=== PATIENT | female | born 1965 | race Hispanic/Latino ===

== ENCOUNTER 2017-03-13 19:10 | Emergency (ER) | payer MEDICAID ==
[2017-03-13 19:40] VITALS: TEMP 97.6; O2SAT 100
--- NOTE | 2017-03-13 19:40 | ED PDOC ---
Arrival/HPI - General Time Seen by Provider: 03/13/17 19:39 Historian: Patient - History of Present Illness Narrative History of Present Illness (Text): 03/13/17 19:40 This 51 yo female presents to the ED complaining of left foot pain and swelling x one day. Patient stated that after bumping into a dresser, it fell on her left foot. Patient noted a left foot swollen. She has been applying an ice pack and elevation. She denies other complaints. Denies calf pain, knee pain, hip pain, or back pain. Time/Duration: Other (1 day) Quality: Aching Context: Home Past Medical History - Provider Review Nursing Documentation Reviewed: Yes - Infectious Disease Hx of Infectious Diseases: None - Cardiac Hx Hypertension: Yes - Musculoskeletal/Rheumatological Hx Arthritis: Yes - Psychiatric Hx Substance Use: No - Surgical History Hx Appendectomy: Yes Family/Social History - Physician Review Nursing Documentation Reviewed: Yes Family/Social History: Other ([place]) Smoking Status: Never Smoked Hx Alcohol Use: No Hx Substance Use: No Allergies/Home Meds Allergies/Adverse Reactions: Allergies No Known Allergies Allergy (Verified 03/13/17 19:40) Review of Systems - Review of Systems Constitutional: Normal. absent: Fatigue, Weight Change, Fevers Eyes: Normal ENT: Normal Respiratory: Normal Cardiovascular: Normal Gastrointestinal: Normal Genitourinary Female: Normal Musculoskeletal: Other (Left foot pain) Skin: Normal Neurological: Normal Endocrine: Normal Hemo/Lymphatic: Normal Psychiatric: Normal Physical Exam Vital Signs Temp Pulse Resp BP Pulse Ox 03/13/17 19:37 97.6 F 80 16 133/56 L 100 Temperature: Afebrile Blood Pressure: Normal Pulse: Regular Respiratory Rate: Normal Appearance: Positive for: Well-Appearing, Non-Toxic, Comfortable Pain Distress: None Mental Status: Positive for: Alert and Oriented X 3 - Systems Exam Head: Present: Atraumatic, Normocephalic Pupils: Present: PERRL Extroacular Muscles: Present: EOMI Conjunctiva: Present: Normal Mouth: Present: Moist Mucous Membranes Upper Extremity: Present: Normal Inspection, Normal ROM, NORMAL PULSES Lower Extremity: Present: NORMAL PULSES, Tenderness, Swelling, Neurovascularly Intact, Capillary Refill < 2 s, Other ((+) mild tenderness over distal 3rd metatarsal area, with mild soft tissue swelling. Gonzalez test was negative. No posterior ankle pain. No erythema, or ecchymosis. No cellulitis, or deformity). No: Edema, CALF TENDERNESS, Erythema, Temperature Abnormalties Neurological: Present: GCS=15, CN II-XII Intact, Speech Normal, Motor Func Grossly Intact, Normal Sensory Function, Normal Cerebellar Funct, Gait Normal, Memory Normal Skin: Present: Warm, Dry, Normal Color. No: Rashes Psychiatric: Present: Alert, Oriented x 3, Normal Insight, Normal Concentration Medical Decision Making ED Course and Treatment: 03/13/17 20:27 Re-evaluation. Patient feels better. Discussed results and plan with patient who expresses understanding. All questions answered and there is agreement with the plan to discharge home with instructions. Patient stable for discharge. Return if symptoms persist or worsen Patient was recommended to use cane, katherine bandage, and post op shoe, and RICE for at least 5 days, and to return to emergency if pain worsen. She also understands to remove katherine bandage at bedtime. Re-evaluation Time: 20:27 Reassessment Condition: Re-examined, Improved - RAD Interpretation Narrative RAD Interpretations (Text): 03/13/17 20:28 Foot x-rays: No Fx Radiology Orders: 03/13/17 19:47 FOOT LEFT 3 VIEWS ROUTINE [RAD] Stat - Medication Orders Current Medication Orders: Discontinued Medications Acetaminophen (Tylenol 325mg Tab) 650 mg PO STAT STA Stop: 03/13/17 19:47 Last Admin: 03/13/17 19:52 Dose: 650 mg MAR Pain/Vitals Document 03/13/17 19:52 JOL (Rec: 03/13/17 19:53 JOL [id number]) Pain Reassessment Is This A Pain ReAssessment? No Sleep Is patient sleeping during reassessment? No Presence of Pain Presence of Pain Yes Pain Scale Used Pain Scale Used Numeric Location Left, Right or Bilateral Left Pain Location Body Site Foot Intensity 6 Scale Used Numeric Disposition/Present on Arrival - Present on Arrival Any Indicators Present on Arrival: No History of DVT/PE: No History of Uncontrolled Diabetes: No Urinary Catheter: No History of Decub. Ulcer: No History Surgical Site Infection Following: None - Disposition Have Diagnosis and Disposition been Completed?: Yes Diagnosis: Foot contusion Disposition: HOME/ ROUTINE Disposition Time: 20:29 Patient Plan: Discharge Patient Problems: Current Active Problems Problem Status Onset Foot contusion Acute Condition: GOOD Discharge Instructions (ExitCare): Foot Contusion (ED) Additional Instructions: Call private doctor for follow up visit in 1-2 days. Keep foot elevated, ice, rest, katherine bandage, cane ortho shoe for at least 5 days. Remove katherine bandage at bedtime. Return to emergency if pain or symptoms worsen. Continue with home Meloxican medication, and take over the counter Tylenol for pain as needed. No gym or sport till clear by your doctor. Forms: WORK NOTE
[2017-03-14 05:22] VITALS: BP 135/65; PULSE 77; RESP 18
--- NOTE | 2017-03-14 09:57 | RAD ---
PROCEDURE: Left Foot Radiographs. HISTORY: pain s/p trauma COMPARISON: None. FINDINGS: BONES: Normal. No fracture. JOINTS: Normal. SOFT TISSUES: Normal. OTHER FINDINGS: None. IMPRESSION: Normal left foot radiographs.
== END 2017-03-13 21:07 | disposition home or self-care (01) ==
LOC: ED 19:10
DX: S90.32XA Contusion of left foot, initial encounter (principal); W22.8XXA Striking against or struck by other objects, initial encounter; Y93.89 Activity, other specified; Y92.89 Other specified places as the place of occurrence of the external cause

== ENCOUNTER 2018-01-05 12:18 | Emergency (ER) | payer MEDICAID ==
[2018-01-05 12:23] VITALS: BMI 31.8
[2018-01-05 12:31] VITALS: O2SAT 98
[2018-01-05 13:08] LABS: ALB/GLOB RATIO 1.3 (1.1-1.8); ALT/SGPT 34 U/L (7-56); AST/SGOT 26 U/L (14-36); BLOOD UREA NITROGEN 11 mg/dL (7-21); GFR AFRICAN-AMERICAN > 60; GFR NON-AFRICAN AMERICAN > 60
[2018-01-05 13:12] LABS: BASO # 0.07 K/mm3 (0.0-2.0); BASO % 1.1 % (0.0-3.0); EOS # 0.2 (0.0-0.7); EOS % 2.4 % (1.5-5.0); GRAN # 4.45 (1.4-6.5); GRAN % 67.2 % (50.0-68.0); HEMOGLOBIN 12.3 g/dL (12.0-16.0); LYMPH # 1.7 (1.2-3.4); LYMPH % 24.9 % (22.0-35.0); MEAN CELL VOLUME 87.6 fl (80.0-105.0); MEAN CORPUSCULAR HEMOGLOBIN 29.2 pg (25.0-35.0); MEAN CORPUSCULAR HGB CONC 33.3 g/dl (31.0-37.0); MEAN PLATELET VOLUME 10.1 fl (7.0-11.0); MONO # 0.3 (0.1-0.6); MONO % 4.4 % (1.0-6.0); RBC 4.21 10^6/uL (3.5-6.1); RED CELL DISTRIBUTION WIDTH 12.8 % (11.5-14.5); WHITE BLOOD COUNT 6.6 10^3/ul (4.5-11.0)
[2018-01-05 13:17] LABS: URINE BILIRUBIN NEGATIVE (NEGATIVE); URINE BLOOD NEGATIVE (NEGATIVE); URINE GLUCOSE (UA) NEGATIVE (NEGATIVE); URINE LEUKOCYTE ESTERASE NEGATIVE Leu/uL (NEGATIVE); URINE PROTEIN NEGATIVE mg/dL (<30 mg/dL); URINE UROBILINOGEN 0.2 E.U./dL (<1 E.U./dL)
[2018-01-05 13:19] LABS: B-TYPE NATRIURETIC PEPTIDE 113 pg/mL (0-450); TROPONIN I < 0.01 ng/mL
[2018-01-05 13:22] LABS: URINE APPEARANCE CLEAR (CLEAR); URINE COLOR YELLOW (YELLOW)
[2018-01-05 13:26] LABS: INR 0.95; PARTIAL THROMBOPLASTIN TIME 29.1 Seconds (25.1-36.5); PROTHROMBIN TIME 10.8 SECONDS (9.4-12.5)
--- NOTE | 2018-01-05 13:45 | ED PDOC ---
Arrival/HPI - General Chief Complaint: Chest Pain Time Seen by Provider: 01/05/18 12:23 Historian: Patient - History of Present Illness Narrative History of Present Illness (Text): 01/05/18 13:30 A 52 year old female, whose past medical history includes Hypertension and arthritis (takes Ibuprofen), presents to the emergency department complaining of central pleuritic chest pain located between breasts for 5 days. Patient reports she has a fmaily history of CAD, stating mother is 73 had recent open heart surgery, and her brother at age 53. She describes pain as "feels like someone punched my chest". She states she may have pulled a muscle after heavy lifting, or any that she may be experiencing indigestion after eating spices. Mentions feeling pain upon waking up or when walking up stairs. She notes also experiencing shortness of breath, pain when breathing, MEDINA, and some dizziness (athough patient states this may be due to Hypertension). Patient denies any leg swelling, nausea, vomiting, trauma/fall, abdominal pain, or any other complaints. Also, patient mentions eating well-cooked hamburger last night. PMD: Dr. Blake Time/Duration: < week (5 days) Symptom Onset: Sudden, Gradual Symptom Course: Unchanged Past Medical History - Provider Review Nursing Documentation Reviewed: Yes - Infectious Disease Hx of Infectious Diseases: None - Reproductive Menopause: Yes - Cardiac Hx Hypertension: Yes - Musculoskeletal/Rheumatological Hx Arthritis: Yes - Psychiatric Hx Substance Use: No - Surgical History Hx Appendectomy: Yes - Anesthesia Hx Anesthesia Reactions: No Hx Malignant Hyperthermia: No Family/Social History - Physician Review Nursing Documentation Reviewed: Yes Family/Social History: CAD/ME (Mother is 73 recent open heart surgery, and brother at age 53.) Smoking Status: Never Smoked Hx Alcohol Use: No Hx Substance Use: No Allergies/Home Meds Allergies/Adverse Reactions: Allergies No Known Allergies Allergy (Verified 03/13/17 19:40) Home Medications: Home Meds Medication Instructions Recorded Confirmed Lisinopril [Zestril] 20 mg PO DAILY 01/05/18 01/05/18 Review of Systems - Physician Review All systems were reviewed & negative as marked: Yes - Review of Systems Constitutional: absent: Other (no trauma/fall) Respiratory: SOB Cardiovascular: Chest Pain (central pleuritic chest pain located between breasts.), MEDINA Gastrointestinal: absent: Abdominal Pain, Nausea, Vomiting Musculoskeletal: absent: Other (no leg swelling.) Neurological: Dizziness (according to patient, dizziness may be caused by Hypertension.) Physical Exam Vital Signs Reviewed: Yes Vital Signs Temp Pulse Resp BP Pulse Ox 01/05/18 12:18 98.3 F 84 16 167/71 H 98 Temperature: Afebrile Blood Pressure: Normal Pulse: Regular Respiratory Rate: Normal Appearance: Positive for: Well-Appearing, Non-Toxic, Comfortable Pain Distress: None Mental Status: Positive for: Alert and Oriented X 3 - Systems Exam Head: Present: Atraumatic, Normocephalic Pupils: Present: PERRL Extroacular Muscles: Present: EOMI Conjunctiva: Present: Normal Mouth: Present: Moist Mucous Membranes Neck: Present: Normal Range of Motion Respiratory/Chest: Present: Clear to Auscultation, Good Air Exchange, Other ( reproducible pain to mid-sternal anterior region of chest wall.). No: Respiratory Distress, Accessory Muscle Use Cardiovascular: Present: Regular Rate and Rhythm, Normal S1, S2. No: Murmurs Abdomen: No: Tenderness, Distention, Peritoneal Signs Back: Present: Normal Inspection Upper Extremity: Present: Normal Inspection. No: Cyanosis, Edema Lower Extremity: Present: Normal Inspection. No: Edema Neurological: Present: GCS=15, CN II-XII Intact, Speech Normal Skin: Present: Warm, Dry, Normal Color. No: Rashes Psychiatric: Present: Alert, Oriented x 3, Normal Insight, Normal Concentration Medical Decision Making ED Course and Treatment: 01/05/18 13:35 Impression: 52 year old female with chest pain. Differential Diagnosis included but are not limited to: Musculoskeletal Plan: -- EKG -- Chest X-ray -- Toradol -- Nitro -- Labs -- Urinalysis -- Reassess and disposition Progress Notes: 01/05/2018 13:44 Chest X-ray IMPRESSION: No active disease. Dictator: Alex Blake MD 01/05/18 14:57 Labs reviewed with negative troponin and elevated D-dimer. Discussed results with patient who after shared decision making decides not to pursue CTPE at this time. - Lab Interpretations Lab Results: 01/05/18 12:45 01/05/18 12:45 Lab Results 01/05/18 13:00: Urine Color Yellow, Urine Appearance Clear, Urine pH 6.0, Ur Specific Blak[place] 1.010, Urine Protein Negative, Urine Glucose (UA) Negative, Urine Ketones Negative, Urine Blood Negative, Urine Nitrate Negative, Urine Bilirubin Negative, Urine Urobilinogen 0.2, Ur Leukocyte Esterase Negative 01/05/18 12:45: Sodium 142, Potassium 4.0, Chloride 106, Carbon Dioxide 24, Anion Gap 16, BUN 11, Creatinine 0.8, Est GFR ( Amer) > 60, Est GFR (Non- Af Amer) > 60, Random Glucose 129 H, Calcium 9.0, Magnesium 1.9, Total Bilirubin 0.3, AST 26, ALT 34, Alkaline Phosphatase 83, Troponin I < 0.01, NT- Pro-B Natriuret Pep 113, Total Protein 7.0, Albumin 4.0, Globulin 3.0, Albumin/ Globulin Ratio 1.3 01/05/18 12:45: PT 10.8, INR 0.95, APTT 29.1, D-Dimer, Quantitative 269 H 01/05/18 12:45: WBC 6.6, RBC 4.21, Hgb 12.3, Hct 36.9, MCV 87.6, MCH 29.2, MCHC 33.3, RDW 12.8, Plt Count 287, MPV 10.1, Gran % 67.2, Lymph % (Auto) 24.9, [place] % (Auto) 4.4, Eos % (Auto) 2.4, Baso % (Auto) 1.1, Gran # 4.45, Lymph # (Auto) 1.7, [place] # (Auto) 0.3, Eos # (Auto) 0.2, Baso # (Auto) 0.07 I have reviewed the lab results: Yes - RAD Interpretation Radiology Orders: 01/05/18 12:30 CHEST TWO VIEWS (PA/LAT) [RAD] Stat - Medication Orders Current Medication Orders: Discontinued Medications Ketorolac Tromethamine (Toradol) 30 mg IVP STAT STA Stop: 01/05/18 13:31 - Scribe Statement The provider has reviewed the documentation as recorded by the Liliana Garcia Provider Scribe Provider Scribe Attestation: All medical record entries made by the Micahibpinky were at my direction and personally dictated by me. I have reviewed the chart and agree that the record accurately reflects my personal performance of the history, physical exam, medical decision making, and the department course for this patient. I have also personally directed, reviewed, and agree with the discharge instructions and disposition. Disposition/Present on Arrival - Present on Arrival Any Indicators Present on Arrival: No History of DVT/PE: No History of Uncontrolled Diabetes: No Urinary Catheter: No History of Decub. Ulcer: No History Surgical Site Infection Following: None - Disposition Have Diagnosis and Disposition been Completed?: Yes Diagnosis: Chest wall pain Disposition: HOME/ ROUTINE Disposition Time: 14:53 Patient Plan: Discharge Condition: IMPROVED Discharge Instructions (ExitCare): Chest Pain (ED), Costochondritis (DC) Prescriptions: Ibuprofen [Motrin Tab] 600 mg PO Q6H PRN #18 tab PRN Reason: Pain, Moderate (4-7) Referrals: Jeff Henriquez MD [Staff Provider] - Follow up with primary Forms: [employer] (Lebanese)
--- NOTE | 2018-01-05 13:45 | RAD ---
Date of service: 01/05/2018 HISTORY: chest pain COMPARISON: No prior. TECHNIQUE: Chest PA and lateral FINDINGS: LUNGS: No active pulmonary disease. PLEURA: No significant pleural effusion identified. No pneumothorax apparent. CARDIOVASCULAR: No radiographic findings to suggest acute or significant cardiovascular disease. OSSEOUS STRUCTURES: No significant abnormalities. VISUALIZED UPPER ABDOMEN: Normal. OTHER FINDINGS: None. IMPRESSION: No active disease.
[2018-01-05 15:02] VITALS: BP 120/67; PULSE 59; TEMP 97.9
[2018-01-05 15:04] VITALS: RESP 16
--- NOTE | 2018-01-05 17:49 | CARD ---
APPROVED REPORT Date of service: 01/05/2018 EKG Measurement Heart [id number] <Conclusion> Normal sinus rhythm
== END 2018-01-05 15:03 | disposition home or self-care (01) ==
LOC: ED 12:18
DX: R07.89 Other chest pain (principal); I10 Essential (primary) hypertension; Z82.49 Family history of ischemic heart disease and other diseases of the circulatory system